=== PATIENT | male | born 1985 | race Caucasian/White ===

== ENCOUNTER 2019-06-21 06:50 | Emergency (ER) | payer MEDICAID ==
[~2019-06-21] VITALS: Ht 167.6 cm; Wt 71.3 kg
[2019-06-21 06:58] VITALS: Ht 167.6 cm; Wt 71.3 kg
[2019-06-21 09:04] VITALS: BP 148/98
== END 2019-06-21 09:04 | disposition home or self-care (01) ==
LOC: ED 06:50
DX: M54.2 Cervicalgia (principal); M54.5 Low back pain; I10 Essential (primary) hypertension; E11.9 Type 2 diabetes mellitus without complications; Z98.890 Other specified postprocedural states; Z90.49 Acquired absence of other specified parts of digestive tract; V09.09XA Pedestrian injured in nontraffic accident involving other motor vehicles, initial encounter; Y93.89 Activity, other specified; Y92.89 Other specified places as the place of occurrence of the external cause; Y99.8 Other external cause status
CPT/HCPCS: 82962

== ENCOUNTER 2019-07-01 22:44 | Emergency (ER) | payer MEDICAID ==
[~2019-07-01] VITALS: Ht 165.1 cm; Wt 73.0 kg
[2019-07-01 23:09] VITALS: Ht 165.1 cm; Wt 73.0 kg
[2019-07-02 02:55] VITALS: BP 142/99
== END 2019-07-02 02:55 | disposition home or self-care (01) ==
LOC: ED 22:44
DX: L03.211 Cellulitis of face (principal); I10 Essential (primary) hypertension; E11.9 Type 2 diabetes mellitus without complications; Z90.49 Acquired absence of other specified parts of digestive tract
CPT/HCPCS: J3490